=== PATIENT | female | born 1965 | race Caucasian/White ===

== ENCOUNTER 2017-11-15 18:24 | Emergency (ER) | payer BC ==
[~2017-11-15] VITALS: Ht 167.6 cm; Wt 67.0 kg
[~2017-11-15 18:24] MED LIST: ALLE60TA PO; FLUT1SPR9 EACH NARE; HUMIBIDDM PO; HYCO5UDC PO
[2017-11-15 18:28] VITALS: BP 135/93; PULSE 78; RESP 16; TEMP 97.9; O2SAT 97
--- NOTE | 2017-11-15 18:55 | RADRPT ---
EXAM DATE/TIME: 11/15/2017 18:43 [facility] COMPARISON: No previous studies available for comparison. INDICATIONS : Stubbed foot today, has pain right 4th toe radiating up into foot MEDICAL HISTORY : None. SURGICAL HISTORY : None. ENCOUNTER: Initial ACUITY: 1 day PAIN SCORE: 10/10 LOCATION: Right foot FINDINGS: There is a complete fracture of the fourth proximal phalanx in the midportion. No significant angulat ion or displacement is seen. Bony structures are osteopenic. CONCLUSION: Fourth proximal phalangeal fracture. Ronal Baltazar MD on November 15, 2017 at 18:52 Board Certified Radiologist. This report was verified electronically.
--- NOTE | 2017-11-15 19:00 | PD ---
HPI Chief Complaint: Injury Time Seen by Provider: 18:32 Travel History International Travel<30 days: No Contact w/Intl Traveler<30days: No Traveled to known affect area: No History of Present Illness HPI 52-year-old female presents to emergency department with pain to the right fourth toe after hitting her toe against a coffee table today. Patient states that she has mild pain and is having difficulty moving the toes to her entire foot. She has full range of motion of her ankle. She denies crepitus. Denies numbness or tingling. She denies pain elsewhere. She is a smoker. PFS Past Medical History Anemia: Yes () Blood Disorders: No Cancer: No Cardiovascular Problems: No Endocrine: Yes Gastrointestinal Disorders: No Genitourinary: No Immune Disorder: Yes (RAYNAUDS DISEASE) Musculoskeletal: No Neurologic: No Psychiatric: No Reproductive: Yes (PLEURISY) Respiratory: No Pneumonia: Yes Thyroid Disease: Yes (HYPERTHYROID) ?: Not Menopausal: Yes : 2 Para: 2 Tubal Ligation: Yes (CAUTERIZED) Past Surgical History Body Medical Devices: METAL PIN IN RIGHT RING FINGER Other Surgery: Yes (SEBACEOUS CYST REMOVAL LLE) Social History Alcohol Use: No Tobacco Use: Yes (1/2 PPD) Substance Use: No Allergies-Medications (Allergen,Severity, Reaction): Coded Allergies: No Known Allergies (Verified Adverse Reaction, Unknown, 11/15/17) Reported Meds & Prescriptions Reported Meds & Active Scripts Active No Active Prescriptions or Reported Medications Review of Systems Except as stated in HPI: all other systems reviewed are Neg Physical Exam Narrative GENERAL: Well-nourished, well-developed patient. SKIN: Focused skin assessment warm/dry. HEAD: Normocephalic. EYES: No scleral icterus. No injection or drainage. CARDIOVASCULAR: Regular rate and rhythm without murmurs, gallops, or rubs. RESPIRATORY: Breath sounds equal bilaterally. No accessory muscle use. MUSCULOSKELETAL: No cyanosis, or edema. Right foot- fourth toe appears laterally displaced with some ecchymosis around the proximal phalanx of the fourth and third toe. No edema. Neurovascularly intact BACK: Nontender without obvious deformity. No CVA tenderness. Data Data Last Documented VS Vital Signs Date Time Temp Pulse Resp B/P (MAP) Pulse Ox O2 Delivery O2 Flow Rate FiO2 11/15/17 18:28 97.9 78 16 135/93 (829) 97 Orders Orders Foot, Complete ([id number]) (11/15/17 ) Support Splint (11/15/17 18:58) Ed Discharge Order (11/15/17 19:00) MDM Medical Decision Making Medical Screen Exam Complete: Yes Emergency Medical Condition: Yes Differential Diagnosis Fourth toe fracture, third toe fracture, foot fracture, sprain Narrative Course 52-year-old female presents to emergency department with pain to the right fourth toe after hitting her toe against a coffee table today. Patient states that she has mild pain and is having difficulty moving the toes to her entire foot. She has full range of motion of her ankle. She denies crepitus. Denies numbness or tingling. She denies pain elsewhere. She is a smoker. Vital signs stable. Physical exam findings consistent with a fourth toe sprain versus strain. Last Impressions Foot X-Ray 11/15/17 0000 Signed Impressions: Service Date/Time: Wednesday, November 15, 2017 18:43 - CONCLUSION: Fourth proximal phalangeal fracture. Ronal Baltazar MD Fourth toe will be celeste taped. Rigid shoe applied. Advised to use issue and walking. Weightbearing as tolerated I advised patient that she should follow up with podiatry within 1 week. Advised the normal course of her injury that this may take weeks to heal. She understood and agreed to follow up with a primary care physician and podiatry as discussed. Tylenol or Motrin per package instructions. Diagnosis Primary Impression: Toe fracture Qualified Codes: S92.514A - Nondisplaced fracture of proximal phalanx of right lesser toe(s), initial encounter for closed fracture Referrals: [facility] Additional Instructions: Use ice or heat for symptom relief. Elevate the joint above the heart to reduce swelling. You may use compression with Francisco wrap or similar to reduce swelling. If symptoms persist or worsen, return to the emergency department. Follow up with your primary care physician within 2 days. Follow-up with podiatry within 1 week. Use the rigid shoe when walking. Weightbearing as tolerated. Scripts No Active Prescriptions or Reported Meds Disposition: 01 DISCHARGE HOME Condition: Stable Humaira Clay Nov 15, 2017 19:00
== END 2017-11-15 19:33 | disposition home or self-care (01) ==
LOC: PHEFT 18:24
DX: S92.514A Nondisplaced fracture of proximal phalanx of right lesser toe(s), initial encounter for closed fracture (principal); I73.00 Raynaud's syndrome without gangrene; E05.90 Thyrotoxicosis, unspecified without thyrotoxic crisis or storm; F17.200 Nicotine dependence, unspecified, uncomplicated; W22.03XA Walked into furniture, initial encounter
CPT/HCPCS: 73630; 99283; L3260